=== PATIENT | male | born 1965 | race American Indian/Alaskan Native ===

== ENCOUNTER 2016-08-11 08:14 | Day surgery (SDC) | payer MEDICAID ==
[2016-08-11] MEDS ORDERED: Lactated Ringer's 500 ML IV ONE (10:02)
[2016-08-11] MEDS ORDERED: Propofol 10 mg/ml Inj (20 ML) ONE (10:59)
[2016-08-11 11:21] VITALS: TEMP 97
[2016-08-11 11:42] VITALS: BP 127/74; PULSE 81; RESP 20; O2SAT 100
== END 2016-08-11 12:45 | disposition home or self-care (01) ==
LOC: H.ENDO 08:14
PROVIDERS: ATTEND Internal Medicine Gastroenterology
DX: Z12.11 Encounter for screening for malignant neoplasm of colon (principal); J44.9 Chronic obstructive pulmonary disease, unspecified; K64.8 Other hemorrhoids